=== PATIENT | female | born 1940 | race Caucasian/White ===

== ENCOUNTER 2017-06-11 09:46 | Inpatient (IN) ==
[2017-06-11 10:39] LABS: Basophils % 0.3 %; Eosinophils % 0.2 %; Hemoglobin 11.3 g/dL (11.5-15.4); Immature Granulocytes % 0.3 % (0-4); Lymphocytes # 0.8 K/mcL (0.6-4.6); Mean Corpuscular HGB Conc 34.2 g/dL (31.6-35.5); Mean Corpuscular Volume 87.5 fL (83.0-100.0); Mean Platelet Volume 10.5 fL (9.4-12.4); Monocytes # 1.2 K/mcL (0.0-1.3); Monocytes % 10.4 %; Neutrophils # 9.8 K/mcL (1.6-8.9); Platelet Count 183 K/mcL (140-400); Red Blood Count 3.77 M/mcL (3.82-4.97); Red Cell Distribution Width 13.5 % (11.5-14.5); Segmented Neutrophils % 81.8 %
--- NOTE | 2017-06-11 10:50 | Emergency Department Note ---
Disposition Clinical Impression: UTI (urinary tract infection), Pyelonephritis Disposition: Admitted As Inpatient Condition: Fair Time of Disposition: 10:50 Female Urogenital HPI - General Chief complaint: ED Fever Stated complaint: UTI/Fever Time Seen by Provider: 06/11/17 10:02 Source: patient Mode of arrival: ambulatory Limitations: no limitations Nursing Notes Reviewed: Yes Vital Signs Reviewed: Yes - History of Present Illness HPI Narrative: Patient is a 77-year-old female who ambulates the ED with chief complaint recurrent urinary tract infections. Patient states that she has had recurrent urinary tract infections since April of this year. States she has been on 5 weeks of antibiotics (1st week Bactrim, 2nd week Macrobid, 3rd week Cipro, 4th week cipro and is currently on Bactrim and continues to have dysuria and urinary urgency/frequency. States that she saw her PCP yesterday who obtained a urine culture. Urine culture grew out gram-negative rods. Sensitivity is not back at this time. Patient decided to come into the ED today because she has now developed right flank pain, suprapubic pain and intermittent fever and chills over the last 3 days. States highest recorded temperature was on Monday which was 103 degrees Fahrenheit. Patient denies any nausea, vomiting, weakness , headache, chest pain or shortness of breath. Does report she feels sick and occasionally dizzy since developing these recurrent UTI's. Pt Subjective Complaint: dysuria, "UTI", other (right flank pain, fever) Onset (ago): week(s) Location: suprapubic Severity: mild Severity scale (1-10): 4 Quality: dull Duration: constant Improves with: none Worsens with: none Urinary Symptoms: dysuria, urgency, frequency, foul smelling urine, flank pain Sexual activity: yes : no Associated symptoms: Reports: denies other symptoms, abdominal pain (suprapubic pain), fever/chills, loss of appetite. Denies: abnormal vaginal discharge, abnormal vaginal bleeding, nausea/vomiting, headaches, , rash, seizure , shortness of breath, syncope, weakness - Related Data Home Medications Medication Instructions Recorded Confirmed Amitriptyline 05/09/15 05/09/15 Hydrochlorothiazide 05/09/15 05/09/15 Nexium 05/09/15 05/09/15 Previous Rx's Medication Instructions Recorded Sulfamethoxazole/Trimeth DS 1 each PO BID #14 tablet 05/09/15 [Bactrim DS] Allergies Allergy/AdvReac Type Severity Reaction Status Date / Time codeine Allergy Hives Verified 05/09/15 13:09 Penicillins [PCN] Allergy Hives Verified 05/09/15 13:09 levofloxacin [From Levaquin] AdvReac Joint Pain Verified 11/23/15 08:47 All systems ED: reviewed and negative except as stated. Review of Systems: As Per HPI Constitutional: Reports: fever, chills. Denies: weakness Eyes: Denies: eye discharge ENT ED: Denies: ear pain, throat pain, dental pain, congestion, dysphagia Cardiovascular: Denies: chest pain, palpitations, dyspnea on exertion, orthopnea , edema, syncope Respiratory: Denies: cough, dyspnea, wheezes, hemoptysis Gastrointestinal: Reports: abdominal pain (Suprapubic tenderness). Denies: nausea, vomiting, diarrhea, constipation, hematemesis, melena, hematochezia Genitourinary: Reports: urgency, dysuria, frequency, hematuria. Denies: discharge Musculoskeletal: Reports: back pain (Right flank pain). Denies: neck pain Integumentary: Denies: rash Neurological: Denies: headache, weakness Endocrine: Denies: fatigue Past Medical History - Past Medical History Source: patient Medical history: Reports: arthritis, fibromyalgia, GERD, hypertension, other Surgical history: Reports: appendectomy, , cholecystectomy, other Psychiatric history: Reports: no psych history - Social History Smoking Status: Never smoker Smokeless Tobacco Status: No Alcohol use: Reports: none Drug use: Reports: none Physical Exam - General Limitations: no limitations General appearance: alert, in no apparent distress - Head Head exam: atraumatic, normocephalic, normal inspection - Eye Eye exam: Present: normal appearance, PERRL, EOMI - ENT ENT exam: normal exam, normal oropharynx, mucous membranes moist, TM's normal bilaterally - Neck Neck exam: Present: normal inspection, full ROM, trachea midline - Chest Chest inspection: Present: symmetric chest wall rise - Respiratory Respiratory exam: Present: normal lung sounds bilaterally - Cardiovascular Cardiovascular exam: Present: regular rate, normal rhythm, normal heart sounds - Abdominal Exam Abdominal exam: Present: soft, Non-Tender, normal bowel sounds. Absent: tenderness, distention, guarding, rebound, rigidity - Extremities Exam Extremities exam: Present: normal inspection. Absent: pedal edema - Expanded Lower Extremity Exam Gait: observed and normal - Back Exam Back exam: Present: normal inspection, full ROM, CVA tenderness (R). Absent: CVA tenderness (L) - Neurological Exam Neurological exam: Present: alert, oriented X3, CN II-XII intact, normal gait - Psychiatric Psychiatric exam: Present: normal affect, normal mood - Skin Skin exam: Present: warm, dry, intact, normal color. Absent: rash, cyanosis, diaphoresis Course Course Narrative: Patient is a 77-year-old female who ambulates the ED with chief complaint recurrent urinary tract infections. Patient states that she has had recurrent urinary tract infections since April of this year. States she has been on 5 weeks of antibiotics (1st week Bactrim, 2nd week Macrobid, 3rd week Cipro, 4th week cipro and is currently on Bactrim and continues to have dysuria and urinary urgency/frequency. States that she saw her PCP yesterday who obtained a urine culture. Urine culture grew out gram-negative rods. Sensitivity is not back at this time. Patient decided to come into the ED today because she has now developed right flank pain, suprapubic pain and intermittent fever and chills over the last 3 days. States highest recorded temperature was on Monday which was 103 degrees Fahrenheit. Patient denies any nausea, vomiting, weakness , headache, chest pain or shortness of breath. Does report she feels sick and occasionally dizzy since developing these recurrent UTI's. Pt is a nontoxic appearing 77-year-old female. Vital stable. Afebrile. Alert and oriented 3. Appears in no acute distress. Head normocephalic. Eyes normal inspection. PERRL. Extraocular movements intact. ENT within normal limits. Airway patent. Neck supple, full range motion, nontender. No signs of meningeal irritation. Heart RRR. Lungs CTAB. Abdomen soft, nontender. Normal bowel sounds. Nonsurgical abdomen. Back normal inspection, mild right CVA tenderness with palpation. Extremities within normal limits. No pedal edema. Neuro no focal neurological deficits noted on exam. Plan to obtain blood work, UA and admit for recurrent UTI's and demetrio Discussed case with . He saw patient in our ED. LABS STILL PENDING. He is currently waiting on the kidney function to return to decide if he is going to get a CT scan or US. He recommended to hold antibiotics at this time until kidney function returns since pt is allergic to penicillin. Discussed case again with Dr. De La Torre. He stated he will order antibiotics and for us to not order them down here. Patient stable to be transferred to floor. Dr. Crawford had [id number] time with patient and agrees with my assessment and treatment plan. . Vital Signs Temperature 98.1 F 06/11/17 09:52 Pulse Rate 76 06/11/17 09:52 Respiratory Rate 18 06/11/17 09:52 Blood Pressure 124/69 06/11/17 09:52 O2 Sat by Pulse Oximetry 91 06/11/17 09:52 Temperature 98.1 F 06/11/17 09:52 Pulse Rate 76 06/11/17 09:52 Respiratory Rate 18 06/11/17 09:52 Blood Pressure 124/69 06/11/17 09:52 O2 Sat by Pulse Oximetry 91 06/11/17 09:52 Oxygen Delivery Oxygen Delivery Room Air Urogenital-Female - Medical Records Medical records reviewed: Yes I reviewed the patient's medical records. - Lab Data Lab results reviewed: Yes I reviewed the patient's lab results. Result diagrams: 06/11/17 10:32 06/11/17 10:32 Lab Results 06/11/17 06/11/17 Range/Units 10:32 10:32 WBC 11.9 H (4.3-11.1) K/mcL RBC 3.77 L (3.82-4.97) M/mcL Hgb 11.3 L (11.5-15.4) g/dL Hct 33.0 L (35.3-44.9) % MCV 87.5 (83.0-100.0) fL MCH 30.0 (28.0-33.3) pg MCHC 34.2 (31.6-35.5) g/dL RDW 13.5 (11.5-14.5) % Plt Count 183 (140-400) K/mcL MPV 10.5 (9.4-12.4) fL Immature Gran % 0.3 (0-4) % Seg Neutrophils % 81.8 % Lymphocytes % 7.0 % Monocytes % 10.4 % Eosinophils % 0.2 % Basophils % 0.3 % Neutrophils # 9.8 H (1.6-8.9) K/mcL Lymphocytes # 0.8 (0.6-4.6) K/mcL Monocytes # 1.2 (0.0-1.3) K/mcL Eosinophils # 0.0 (0.0-0.6) K/mcL Basophils # 0.0 (0.0-0.2) K/mcL Sodium 129 L (136-145) mEq/L Potassium 2.9 L (3.5-4.5) mEq/L Chloride 95 L (98-109) mEq/L Carbon Dioxide 23 (19-29) mEq/L BUN 35 H (7-20) mg/dL Creatinine 1.67 H (0.57-1.11) mg/dL Est GFR ( Amer) 36 L (> 60) Est GFR (Non-Af Amer) 30 L (> 60) BUN/Creatinine Ratio 21 (6-26) Glucose 99 (70-99) mg/dL Calculated Osmolality 276 L (280-300) Calcium 8.4 L (8.6-10.8) mg/dL
[2017-06-11 10:51] LABS: Calcium 8.4 mg/dL (8.6-10.8); Potassium 2.9 mEq/L (3.5-4.5)
--- NOTE | 2017-06-11 10:51 | Internal Med History&Physical ---
Date of Encounter: 06/11/17 Time of Encounter: 10:46 Assessment and Plan (1) Right flank pain Current visit: Yes Status: Acute 77/female Came with right flank pain. Had a febrile episode for 3 days. Was diagnosed case of urinary tract infection since April. Procedures multiple antibiotic courses as below. Renal punch positive. Possible right-sided pyelonephritis. Plan: -Admit as inpatient. -Basic labs/blood culture -Will start IV antibiotics. Patient is allergic to penicillin/levofloxacin. We will start her on ceftriaxone. -Imaging of abdomen: To see extent and complications of pyelonephritis. Patient 's creatinine is 1.6 times we will get a retroperitoneal ultrasound. I have examined this patient in the room 7 in the emergency department and patient's friend was at bedside. All questions answered (2) Urinary tract infection Current visit: Yes Status: Acute Since April she received following antibiotics as of full courses Bactrim, Macrobid, ciprofloxacin, ciprofloxacin and Bactrim. Qualifiers: Urinary tract infection type: site unspecified Hematuria presence: without hematuria Qualified Code(s): N39.0 - Urinary tract infection, site not specified (3) Hypertension Current visit: Yes Status: Acute Essential hypertension plan Will resume home medication Qualifiers: Hypertension type: essential hypertension Qualified Code(s): I10 - Essential (primary) hypertension (4) Hypokalemia Current visit: Yes Status: Acute We will replace potassium. We will give IV 10 mEq and the rest 40 by mouth. Likely cause of hypokalemia is hydrochlorothiazide. We will hold this medication for now. (5) DVT prophylaxis Current visit: Yes Status: Acute Heparin Medical decision making: This patient has a moderate to severe risk of worsening in spite of being on appropriate medications due to underlying complex medical conditions. Internal Medicine - H&P: HPI Chief complaint: right flank pain Admitted From: Emergency Dept Plans for Post Hospital Care: Home History of present illness: PCP: Dr Simpson Brief PMH: hypertension, hyperlipidemia, fibromyalgia, morbid obesity, arthritis History of present illness: Patient is complaining of right-sided flank pain since last 5 days. Patient also complaining of dysuria for the past 1 week. Patient has fever of 103 on Monday to Monday. Patient is very upset regarding her treatment for urinary tract infection. Patient also complains of occasional nausea but denies any vomiting. Patient denies chest pain, shortness of breath, abdominal pain diarrhea or constipation. Patient had so far 5 times different antibiotics in last 2 months. Patient was multiple times seen by PCP and change antibiotics as per culture and sensitivity. Patient has an appointment with urology for further evaluation. Workup in the emergency room: Patient was evaluated in the emergency room. Basic labs were drawn. Reason for admission: Urinary tract infection to rule out pyelonephritis which requires intravenous antibiotics and close monitoring. Family history: Noncontributory Past Med Surg Social Fam HX - Past Medical History Medical history: arthritis, fibromyalgia, GERD, hypertension, other Psychiatric history: no psych history - Past Surgical History Surgical History: appendectomy, , cholecystectomy, other - Social History Smoking Status: Never smoker Smokeless Tobacco Status: No Alcohol use: none Drug use: none Internal Medicine - H&P: Meds Amitriptyline [Elavil] 30 mg PO HS 05/09/15 [History] Esomeprazole Magnesium [Nexium] 40 mg PO DAILY 05/09/15 [History] hydroCHLOROthiazide [Hydrochlorothiazide] 25 mg PO BID 05/09/15 [History] Ascorbic Acid [Vitamin C] 1,000 mg PO BID 06/11/17 [History] Atenolol [Tenormin] 50 mg PO BID 06/11/17 [History] Cetirizine HCl [Zyrtec] 10 mg PO DAILY 06/11/17 [History] Cholecalciferol (D-3) [Vitamin D] 1,000 unit PO BID 06/11/17 [History] Montelukast [Singulair] 10 mg PO HS 06/11/17 [History] Olmesartan Medoxomil [Benicar] 40 mg PO DAILY 06/11/17 [History] Potassium Chloride [K-Tab ER] 20 meq PO DAILY 06/11/17 [History] Sulfamethoxazole/Trimeth DS [Bactrim DS] 1 tab PO BID 06/11/17 [History] Terazosin [Hytrin] 2 mg PO HS 06/11/17 [History] Ubidecarenone/Vit E Acetate [Co Q-10 100 mg Softgel] 100 mg PO DAILY 06/11/17 [ History] 3 Allergy/AdvReac Type Severity Reaction Status Date / Time codeine Allergy Hives Verified 05/09/15 13:09 Penicillins [PCN] Allergy Hives Verified 05/09/15 13:09 levofloxacin [From Levaquin] AdvReac Joint Pain Verified 11/23/15 08:47 All Systems PM: A 10-system review of systems was performed and is negative for pertinent findings except as documented above in the HPI. - Constitutional Constitutional: no chills, no fever(s), no night sweats - EENT Eyes: no change in vision, no discharge, no pain, no photophobia Ears: no ear discharge, no ear pain, no tinnitus Nose, mouth and throat: no dysphagia, no nasal discharge, no neck pain, no sore throat - Cardiovascular Cardiovascular ROS IM: no chest pain, no diaphoresis, no dyspnea, no lightheadedness, no palpitations, no syncope - Respiratory Respiratory: no cough, no dyspnea, no wheezing, no excessive phlegm production - Gastrointestinal Gastrointestinal: abdominal pain, no diarrhea, no hematemesis, no hematochezia, no melena, no nausea, no vomiting Additional comments: Right flank pain - Genitourinary Genitourinary: change in urinary stream, dysuria, flank pain, urinary frequency , urinary hesitancy, no hematuria - Musculoskeletal Musculoskeletal ROS IM: no numbness, no tingling - Integumentary Integumentary IM: no rash, no unusual bruising - Neurological Neurological ROS: no confusion, no convulsions, no focal weakness, no numbness, no tingling, no tremor(s) - Hematologic/Lymphatic Hematologic/Lymphatic: no easy bruising - Constitutional Vitals: Temp Pulse Resp BP Pulse Ox 98.1 F 76 18 124/69 91 06/11/17 09:52 06/11/17 09:52 06/11/17 09:52 06/11/17 09:52 06/11/17 09:52 General appearance: Present: A&O X 3, pleasant, no acute distress, answers questions appropriately - Head Head exam: Present: atraumatic, normocephalic - Eye Eye exam: Present: PERRL, conjuntiva pink, sclera anicteric Pupils: Present: PERRL - Neck Neck exam general surgery: Present: supple, trachea midline. Absent: lymphadenopathy - Respiratory Respiratory exam: Present: CTAB. Absent: accessory muscle use, rales, rhonchi, wheezes - Cardiovascular Cardiovascular exam: Present: RRR, +S1, +S2. Absent: diastolic murmur, gallop, rubs, systolic murmur - GI/Abdominal GI/Abdominal exam: Present: normal bowel sounds, soft, no peritoneal signs. Absent: distended, tenderness Additional comments: renal punch is positive. - Extremities Exam Extremities exam: Present: warm, radial pulses palpable and symmetrical. Absent : calf tenderness, cyanotic, pedal edema - Neurological Exam Neurological exam: Present: CN II-XII intact, oriented X3, no focal deficits. Absent: pronater drift, facial droop, speech deficit - Skin Skin exam: Present: dry, intact Internal Med - H&P Results - Labs CBC & Chem 7: 06/11/17 10:32 06/11/17 10:32 Labs: Case discussed with the emergency room physician
[2017-06-11] MEDS ORDERED: Naloxone 0.4 MG/ML INJ IVP PRN (11:03)
[2017-06-11 11:54] LABS: Bilirubin,Urine Negative (Negative); Blood,Urine Trace (Negative); Color,Urine Yellow (Yellow); Glucose,Urine (UA) Normal (Normal); Ketones,Urine Negative (Negative); Leukocyte Esterase,Urine Small (Negative); Nitrite,Urine Negative (Negative); PH,Urine 6.5 pH Units (5.0-8.0); Protein,Urine Negative (Neg-Trace); Urobilinogen,Urine Normal (Normal)
[2017-06-11] MEDS ORDERED: cefTRIAXone 1,000 MG in Water for inj. (sterile) 20 ML IVP SCH (12:00)
[2017-06-11 12:05] LABS: Clarity,Urine Slightly Hazy (Clear)
[2017-06-11 12:23] LABS: RBC,Urine 0-3 per hpf (0-3); Squamous Epithelial Cell,Urine Few per lpf (None-Few)
[2017-06-11] MEDS ORDERED: Water for inj. (sterile) 20 ML IV ONE (12:30)
[2017-06-11] MEDS: cefTRIAXone 1,000 MG in Water for inj. (sterile) 20 ML IVP SCH (12:44)
[2017-06-11] MEDS: Acetaminophen 325 MG TABLET PO PRN ×2 (13:00→20:17)
[2017-06-11] MEDS: *HR* Heparin 5,000 UNIT/ML VIAL SQ SCH (17:00)
[2017-06-11] MEDS: Ascorbic Acid 500 MG TABLET PO SCH (20:17)
[2017-06-12] MEDS: Acetaminophen 325 MG TABLET PO PRN ×3 (03:08→18:03)
[2017-06-12 03:42] LABS: Basophils % 0.2 %; Eosinophils % 0.3 %; Hematocrit 32.3 % (35.3-44.9); Hemoglobin 10.8 g/dL (11.5-15.4); Immature Granulocytes % 0.6 % (0-4); Lymphocytes # 1.1 K/mcL (0.6-4.6); Mean Corpuscular HGB Conc 33.4 g/dL (31.6-35.5); Mean Corpuscular Hemoglobin 29.8 pg (28.0-33.3); Mean Platelet Volume 10.4 fL (9.4-12.4); Monocytes # 1.2 K/mcL (0.0-1.3); Monocytes % 10.8 %; Neutrophils # 8.5 K/mcL (1.6-8.9); Platelet Count 215 K/mcL (140-400); Red Blood Count 3.63 M/mcL (3.82-4.97); Red Cell Distribution Width 13.4 % (11.5-14.5); Segmented Neutrophils % 78.1 %
[2017-06-12 03:46] LABS: INR 1.1; Prothrombin Time 11.8 Seconds (9.4-12.1)
[2017-06-12 03:48] LABS: Activated Partial Thrombo Time 45.1 Seconds (26.0-36.0)
[2017-06-12 03:55] LABS: Albumin 2.6 g/dL (3.5-5.0); Albumin/Globulin Ratio 0.7 (1.1-2.2); Bilirubin,Total 0.2 mg/dL (0.2-1.2); Calcium 8.4 mg/dL (8.6-10.8); Chol/HDL Ratio 8.9 (0-4.9); Globulin 3.8 g/dL (2.4-3.5); Magnesium 1.4 mg/dL (1.6-2.6); Phosphorous 2.6 mg/dL (2.3-4.7); Potassium 3.4 mEq/L (3.5-4.5); Total Protein 6.4 g/dL (6.0-8.3)
[2017-06-12] MEDS: *HR* Heparin 5,000 UNIT/ML VIAL SQ SCH ×2 (06:28→17:59)
[2017-06-12] MEDS ORDERED: Potassium Chloride 40 MEQ, Lidocaine 1% 2 ML in D5% in Water 500 ML IVPB ONE (08:49)
--- NOTE | 2017-06-12 08:54 | Internal Med Progress Note ---
Date of Encounter: 06/12/17 Time of Encounter: 08:51 - Assessment and plan (1) Gram-negative bacteremia Current Visit: Yes Status: Acute (2) Pyelonephritis Current Visit: Yes Status: Acute (3) MATT (acute kidney injury) Current Visit: Yes Status: Acute (4) Hypokalemia Current Visit: Yes Status: Acute (5) Hypomagnesemia Current Visit: Yes Status: Acute - Subjective Interval history: Admitted for gram-negative bacteremia with gram-negative rods final report pending. Patient has right flank pain and has failed outpatient treatment. Ultrasound is pending to rule out any obstruction. Patient has been started on IV Rocephin directly. Her renal function previously was normal and creatinine has raised therefore IV fluids have been started as well as retroperitoneal ultrasound to rule out obstruction, which is pending. Magnesium and potassium are low and will be supplemented and orders will follow CBC CMP magnesium. - Constitutional Vitals: Temp Pulse Resp BP Pulse Ox 97.6 F 71 17 120/54 91 06/12/17 06:38 06/12/17 06:38 06/12/17 06:38 06/12/17 06:38 06/12/17 06:38 General appearance: Present: A&O X 3, pleasant, no acute distress, answers questions appropriately - Head Head exam: Present: atraumatic, normocephalic - Eye Eye exam: Present: PERRL, conjuntiva pink, sclera anicteric Pupils: Present: PERRL - Neck Neck exam general surgery: Present: supple, trachea midline. Absent: lymphadenopathy - Respiratory Respiratory exam: Present: CTAB. Absent: accessory muscle use, rales, rhonchi, wheezes - Cardiovascular Cardiovascular exam: Present: RRR, +S1, +S2. Absent: diastolic murmur, gallop, rubs, systolic murmur - GI/Abdominal GI/Abdominal exam: Present: normal bowel sounds, soft, no peritoneal signs. Absent: distended, tenderness Additional comments: Right CVA tenderness - Extremities Exam Extremities exam: Present: warm, radial pulses palpable and symmetrical. Absent : calf tenderness, cyanotic, pedal edema - Neurological Exam Neurological exam: Present: CN II-XII intact, oriented X3, no focal deficits. Absent: pronater drift, facial droop, speech deficit - Skin Skin exam: Present: dry, intact Internal Medicine: Result - Labs CBC & Chem 7: 06/12/17 03:29 06/12/17 03:29 Labs: Short CBC 06/12/17 Range/Units 03:29 WBC 10.9 (4.3-11.1) K/mcL Hgb 10.8 L (11.5-15.4) g/dL Hct 32.3 L (35.3-44.9) % Plt Count 215 (140-400) K/mcL Neutrophils # 8.5 (1.6-8.9) K/mcL BMP 06/12/17 03:29 Sodium 130 L Potassium 3.4 L Chloride 94 L Carbon Dioxide 25 BUN 34 H Creatinine 1.72 H Glucose 95 Calcium 8.4 L Liver Function 06/12/17 Range/Units 03:29 Total Bilirubin 0.2 (0.2-1.2) mg/dL AST 19 (5-34) Units/L ALT 16 (0-55) Units/L Alkaline Phosphatase 69 (38-126) Units/L Albumin 2.6 L (3.5-5.0) g/dL Urine 06/11/17 Range/Units 11:30 Urine Color Yellow (Yellow) Urine Clarity Slightly Hazy (Clear) Urine pH 6.5 (5.0-8.0) pH Units Ur Specific [place] 1.010 (1.010-1.025) Urine Protein Negative (Neg-Trace) mg/dL Urine Glucose (UA) Normal (Normal) mg/dL - ABG Interpretation ABG results: PT/INR, D-dimer PT 11.8 Seconds (9.4-12.1) 06/12/17 03:29 Consult Discharge Plan - Plan Referrals: Florentin Mcgrath DO [Primary Care Provider] -
[2017-06-12 09:49] LABS: Bilirubin,Urine Negative (Negative); Blood,Urine Trace (Negative); Clarity,Urine Clear (Clear); Color,Urine Yellow (Yellow); Glucose,Urine (UA) Normal (Normal); Ketones,Urine Negative (Negative); Leukocyte Esterase,Urine Small (Negative); Nitrite,Urine Negative (Negative); PH,Urine 6.5 pH Units (5.0-8.0); Protein,Urine Negative (Neg-Trace); Specific Gravity,Urine 1.014 (1.010-1.025); Urobilinogen,Urine Normal (Normal)
[2017-06-12 09:54] LABS: Bacteria,Urine None Seen per hpf (None-Few); Hyaline Casts,Urine None Seen per lpf (None-Few); RBC,Urine 0-3 per hpf (0-3); Squamous Epithelial Cell,Urine Many per lpf (None-Few); WBC,Urine 15-30 per hpf (0-3)
[2017-06-12] MEDS: Ascorbic Acid 500 MG TABLET PO SCH ×2 (10:00→20:31)
[2017-06-12] MEDS: 0.9 % Sodium Chloride 1,000 ML IVC SCH ×2 (10:00→23:42)
[2017-06-12] MEDS: cefTRIAXone 1,000 MG in Water for inj. (sterile) 20 ML IVP SCH (12:52)
[2017-06-12 17:28] LABS: Enterococcus by PCR Not Detected (Not Detect); Staphylococcus aureus by PCR Not Detected (Not Detect); blaKPC Carbapenem-Resist Gene Not Detected (Not Detect); mecA Methicillin-Resist Gene Not Detected (Not Detect); vanA/B Vancomycin-Resist Genes Not Detected (Not Detect)
[2017-06-12 17:29] LABS: Acinetobacter baumannii by PCR Not Detected (Not Detect); Streptococcus agalactiae(B)PCR Not Detected (Not Detect); Streptococcus by PCR Not Detected (Not Detect); Streptococcus pneumoniae PCR Not Detected (Not Detect); Streptococcus pyogenes (A) PCR Not Detected (Not Detect)
[2017-06-12 17:30] LABS: Candida albicans by PCR Not Detected (Not Detect); Candida glabrata by PCR Not Detected (Not Detect); Candida krusei by PCR Not Detected (Not Detect); Candida parapsilosis by PCR Not Detected (Not Detect); Candida tropicalis by PCR Not Detected (Not Detect); Escherichia coli by PCR ***DETECTED*** (Not Detect); Klebsiella oxytoca by PCR Not Detected (Not Detect); Klebsiella pneumoniae by PCR Not Detected (Not Detect); Pseudomonas aeruginosa by PCR Not Detected (Not Detect); Serratia marcescens by PCR Not Detected (Not Detect)
[2017-06-13 04:07] LABS: Basophils # 0.1 K/mcL (0.0-0.2); Basophils % 0.5 %; Eosinophils # 0.1 K/mcL (0.0-0.6); Eosinophils % 1.1 %; Hematocrit 31.6 % (35.3-44.9); Hemoglobin 10.3 g/dL (11.5-15.4); Immature Granulocytes % 0.4 % (0-4); Lymphocytes # 1.2 K/mcL (0.6-4.6); Lymphocytes % 11.8 %; Mean Corpuscular HGB Conc 32.6 g/dL (31.6-35.5); Mean Corpuscular Hemoglobin 29.3 pg (28.0-33.3); Mean Platelet Volume 10.3 fL (9.4-12.4); Monocytes % 9.4 %; Platelet Count 219 K/mcL (140-400); Red Blood Count 3.51 M/mcL (3.82-4.97); Red Cell Distribution Width 13.6 % (11.5-14.5); Segmented Neutrophils % 76.8 %
[2017-06-13 04:14] LABS: Alanine Aminotransferase 13 Units/L (0-55); Albumin 2.3 g/dL (3.5-5.0); Albumin/Globulin Ratio 0.6 (1.1-2.2); Alkaline Phosphatase 68 Units/L (38-126); Aspartate Amino Transferase 15 Units/L (5-34); BUN/Creatinine Ratio 21 (6-26); Bilirubin,Total < 0.2 mg/dL (0.2-1.2); Blood Urea Nitrogen 26 mg/dL (7-20); Calcium 8.1 mg/dL (8.6-10.8); Carbon Dioxide 23 mEq/L (19-29); Chloride 101 mEq/L (98-109); Globulin 3.6 g/dL (2.4-3.5); Glucose 111 mg/dL (70-99); Magnesium 1.9 mg/dL (1.6-2.6); Osmolality,Calculated 279 (280-300); Sodium 132 mEq/L (136-145); Total Protein 5.9 g/dL (6.0-8.3); eGFR For African Americans 52 (> 60); eGFR For Non-African Americans 43 (> 60)
[2017-06-13] MEDS: *HR* Heparin 5,000 UNIT/ML VIAL SQ SCH ×2 (05:49→18:08)
[2017-06-13] MEDS: Ascorbic Acid 500 MG TABLET PO SCH ×2 (08:44→20:54)
[2017-06-13] MEDS: cefTRIAXone 1,000 MG in Water for inj. (sterile) 20 ML IVP SCH (12:43)
--- NOTE | 2017-06-13 13:50 | Internal Med Progress Note ---
Date of Encounter: 06/13/17 Time of Encounter: 08:30 - Assessment and plan (1) Sepsis Current Visit: Yes Status: Acute Assessment and plan: Improved pt did meet sepsis criteria during admission -with elevated WBC, Fever, EOD - MATT and SOI as UTI cont empirical abx Qualifiers: Sepsis type: Escherichia coli Qualified Code(s): A41.51 - Sepsis due to Escherichia coli [E. coli] (2) Bacteremia due to Escherichia coli Current Visit: Yes Status: Acute Assessment and plan: due to UTI Repeat blood cx no growth so far cont Ceftriaxone (3) UTI (urinary tract infection) Current Visit: Yes Status: Acute Assessment and plan: Urine cx growing E. Coli - PCN and Fluroquinolone resistant cont abx [place] # 3/7 Qualifiers: Urinary tract infection type: site unspecified Qualified Code(s): N39.0 - Urinary tract infection, site not specified (4) Hypertension Current Visit: Yes Status: Acute Assessment and plan: stable with home meds Qualifiers: Hypertension type: essential hypertension Qualified Code(s): I10 - Essential (primary) hypertension (5) Hypokalemia Current Visit: Yes Status: Acute Assessment and plan: improved (6) MATT (acute kidney injury) Current Visit: Yes Status: Acute Assessment and plan: resolved - Subjective Interval history: Ms. Eason is 77 y/o F with known PMH of HTN, GERD, Seasonal allergies pt admitted here with acute UTI and Sepsis. Pt was started on empiricla abx Rocephin. Today her symptoms little better, she is alert, awake and O x3. Still has some chills and low grade temp T max 100,3 this morning. Denied any CP / SOB - Constitutional Vitals: Temp Pulse Resp BP Pulse Ox 97.4 F L 75 14 121/63 93 06/13/17 11:37 06/13/17 11:37 06/13/17 11:37 06/13/17 11:37 06/13/17 11:37 General appearance: Present: A&O X 3, no acute distress, answers questions appropriately - Head Head exam: Present: atraumatic, normal inspection - Neck Neck exam general surgery: Present: supple - Respiratory Respiratory exam: Present: decreased breath sounds. Absent: rales, respiratory distress, rhonchi, wheezes - Cardiovascular Cardiovascular exam: Present: RRR, +S1, +S2. Absent: diastolic murmur, gallop, rubs, systolic murmur - GI/Abdominal GI/Abdominal exam: Present: normal bowel sounds, soft. Absent: rebound, rigid, tenderness - Extremities Exam Extremities exam: Absent: calf tenderness, pedal edema, tenderness - Back Exam Back exam: Absent: CVA tenderness (L), CVA tenderness (R) - Psychiatric Psychiatric exam: Present: normal affect, normal mood Internal Medicine: Result - Labs CBC & Chem 7: 06/13/17 03:47 06/13/17 03:47 Labs: Short CBC 06/13/17 Range/Units 03:47 WBC 10.3 (4.3-11.1) K/mcL Hgb 10.3 L (11.5-15.4) g/dL Hct 31.6 L (35.3-44.9) % Plt Count 219 (140-400) K/mcL Neutrophils # 8.0 (1.6-8.9) K/mcL BMP 06/13/17 03:47 Sodium 132 L Potassium 4.0 Chloride 101 Carbon Dioxide 23 BUN 26 H Creatinine 1.22 H Glucose 111 H Calcium 8.1 L Liver Function 06/13/17 Range/Units 03:47 Total Bilirubin < 0.2 L (0.2-1.2) mg/dL AST 15 (5-34) Units/L ALT 13 (0-55) Units/L Alkaline Phosphatase 68 (38-126) Units/L Albumin 2.3 L (3.5-5.0) g/dL - ABG Interpretation ABG results: PT/INR, D-dimer PT 11.8 Seconds (9.4-12.1) 06/12/17 03:29 - Impressions Impressions Chest X-Ray 06/12/17 08:56 IMPRESSION: Findings suspicious for right upper lobe pneumonia. Moderate left lower lobe atelectasis versus pneumonia. Increased size of hiatal hernia over the past 4 years D/ / Fran Lugo MD / Fran Lugo MD Interpreting Provider: Fran Lugo MD Retroperitoneum Ultrasound 06/12/17 13:00 IMPRESSION: Unremarkable ultrasound of the kidneys and urinary bladder. D/ / Lambert Burnett MD / Lambert Burnett MD Interpreting Provider: Lambert Burnett MD Consult Discharge Plan - Plan Referrals: Florentin Mcgrath DO [Primary Care Provider] - 06/19/17 1:30 pm (please follow up as schedule...)
[2017-06-13] MEDS: Fluticasone Propionate Nasal 50 MCG/SPRAY BOTTLE NS SCH (16:13)
[2017-06-14 05:12] LABS: Basophils % 0.4 %; Eosinophils # 0.2 K/mcL (0.0-0.6); Eosinophils % 2.3 %; Hematocrit 32.8 % (35.3-44.9); Hemoglobin 10.7 g/dL (11.5-15.4); Lymphocytes # 1.4 K/mcL (0.6-4.6); Lymphocytes % 13.7 %; Mean Corpuscular HGB Conc 32.6 g/dL (31.6-35.5); Mean Corpuscular Hemoglobin 29.7 pg (28.0-33.3); Mean Corpuscular Volume 91.1 fL (83.0-100.0); Mean Platelet Volume 10.6 fL (9.4-12.4); Monocytes # 0.9 K/mcL (0.0-1.3); Monocytes % 8.9 %; Neutrophils # 7.7 K/mcL (1.6-8.9); Platelet Count 269 K/mcL (140-400); Red Cell Distribution Width 13.6 % (11.5-14.5); Segmented Neutrophils % 73.7 %
[2017-06-14 05:25] LABS: Alanine Aminotransferase 20 Units/L (0-55); Albumin 2.5 g/dL (3.5-5.0); Albumin/Globulin Ratio 0.6 (1.1-2.2); Alkaline Phosphatase 77 Units/L (38-126); Aspartate Amino Transferase 25 Units/L (5-34); BUN/Creatinine Ratio 22 (6-26); Bilirubin,Total 0.3 mg/dL (0.2-1.2); Blood Urea Nitrogen 22 mg/dL (7-20); Calcium 8.7 mg/dL (8.6-10.8); Carbon Dioxide 17 mEq/L (19-29); Chloride 105 mEq/L (98-109); Globulin 4.1 g/dL (2.4-3.5); Glucose 113 mg/dL (70-99); Magnesium 1.7 mg/dL (1.6-2.6); Osmolality,Calculated 282 (280-300); Potassium 4.5 mEq/L (3.5-4.5); Sodium 134 mEq/L (136-145); Total Protein 6.6 g/dL (6.0-8.3); eGFR For African Americans > 60 (> 60); eGFR For Non-African Americans 54 (> 60)
[2017-06-14] MEDS: *HR* Heparin 5,000 UNIT/ML VIAL SQ SCH (05:48)
[2017-06-14 07:09] VITALS: BP 131/75
--- NOTE | 2017-06-14 08:44 | Discharge Summary ---
Date of Encounter: 06/14/17 Time of Encounter: 08:41 - Discharge Diagnosis (1) Sepsis Priority: Primary Status: Resolved Qualifiers: Sepsis type: Escherichia coli Qualified Code(s): A41.51 - Sepsis due to Escherichia coli [E. coli] (2) Bacteremia due to Escherichia coli Priority: Primary Status: Resolved (3) UTI (urinary tract infection) Priority: Primary Status: Acute Qualifiers: Urinary tract infection type: site unspecified Qualified Code(s): N39.0 - Urinary tract infection, site not specified (4) Hypertension Priority: Secondary Status: Acute Qualifiers: Hypertension type: essential hypertension Qualified Code(s): I10 - Essential (primary) hypertension (5) Hypokalemia Priority: Secondary Status: Acute (6) MATT (acute kidney injury) Priority: Secondary Status: Acute - Discharge Medications Prescriptions: Cephalexin [Keflex] 500 mg PO TID #12 capsule Home Medications: Amitriptyline [Elavil] 30 mg PO HS 05/09/15 [History] Esomeprazole Magnesium [Nexium] 40 mg PO DAILY 05/09/15 [History] Ascorbic Acid [Vitamin C] 1,000 mg PO BID 06/11/17 [History] Atenolol [Tenormin] 50 mg PO BID 06/11/17 [History] Cetirizine HCl [Zyrtec] 10 mg PO DAILY 06/11/17 [History] Cholecalciferol (D-3) [Vitamin D] 1,000 unit PO BID 06/11/17 [History] Montelukast [Singulair] 10 mg PO HS 06/11/17 [History] Olmesartan Medoxomil [Benicar] 40 mg PO DAILY 06/11/17 [History] Terazosin [Hytrin] 2 mg PO HS 06/11/17 [History] Ubidecarenone/Vit E Acetate [Co Q-10 100 mg Softgel] 100 mg PO DAILY 06/11/17 [ History] Cephalexin [Keflex] 500 mg PO TID #12 capsule 06/14/17 [Rx] hydroCHLOROthiazide [Hydrochlorothiazide] 25 mg PO DAILY #0 06/14/17 [Rx] Allergies/Adverse Reactions: 3 Allergy/AdvReac Type Severity Reaction Status Date / Time codeine Allergy Hives Verified 05/09/15 13:09 Penicillins [PCN] Allergy Hives Verified 05/09/15 13:09 levofloxacin [From Levaquin] AdvReac Joint Pain Verified 11/23/15 08:47 Procedures/tests Complete & Pending: Procedures Performed prior 72 hours Category Date Time Status US retroperitoneal comp [US] Routine Exams 06/12/17 13:00 Completed Date of admission: 06/11/17 11:03 Primary care physician: Frankie Funes - Patient Status Disposition: Home, Self-Care Condition: Good Overall status at discharge: patient is back to baseline - Discharge Instructions Follow Up With: Florentin Mcgrath DO [Primary Care Provider] - 06/19/17 1:30 pm (please follow up as schedule...) Forms: ED Satisfaction Letter - Diet and Activity Activity: increase activity as tolerated Diet: low salt diet Hospital course: Ms. Eason is 77 y/o F with known PMH of HTN, GERD, Seasonal allergies pt admitted here with acute UTI and Sepsis. Pt was started on empiricla abx Rocephin. Her blood cx / grew E. Coli and Urine Cx gtew E. Coli- PCN and Fluroquinolone resistant. However it is cephalosporine sensitive. Pt also happened to have MATT due to sepsis and HCTZ side effect. Held HCTZ and placed her on IV hydration. Her Cr back to baseline today. Pt remained afebrile since y /d, so will d/c her home today in stable condition. Recommend to f/u with PCP in one week - Time Spent with Patient Total time spent providing and/or coordinating discharge services: - Constitutional Vitals: Temp Pulse Resp BP Pulse Ox 98.6 F 70 18 131/75 92 06/14/17 07:06 06/14/17 07:06 06/14/17 07:06 06/14/17 07:06 06/14/17 07:06 General appearance: Present: A&O X 3, no acute distress, answers questions appropriately - Head Head exam: Present: atraumatic, normal inspection - Respiratory Respiratory exam: Present: decreased breath sounds. Absent: rales, respiratory distress, rhonchi, wheezes - Cardiovascular Cardiovascular exam: Present: RRR, +S1, +S2. Absent: systolic murmur, tachycardia - GI/Abdominal GI/Abdominal exam: Present: soft - Extremities Exam Extremities exam: Absent: calf tenderness, pedal edema, tenderness - Back Exam Back exam: Absent: CVA tenderness (L), CVA tenderness (R) - Neurological Exam Neurological exam: Present: alert, oriented X3 - Psychiatric Psychiatric exam: Present: normal affect, normal mood
[2017-06-14] MEDS: Fluticasone Propionate Nasal 50 MCG/SPRAY BOTTLE NS SCH (10:15)
[2017-06-14] MEDS: Ascorbic Acid 500 MG TABLET PO SCH (10:15)
== END 2017-06-14 11:00 | disposition home or self-care (01) | DRG 872 ==
LOC: 2ANU 09:46 → EMEROO 09:46 → SUATTDRO 11:03 → 2ANU 11:06
PROVIDERS: ADMIT Internal Medicine; ATTEND Family Medicine